=== PATIENT | male | born 1975 | race Asian ===

== ENCOUNTER 2018-05-26 15:59 | Emergency (ER) | payer MEDICARE ==
[~2018-05-26] VITALS: Ht 170.2 cm; Wt 83.9 kg
[2018-05-26 16:02] VITALS: BP_SYST 142
--- NOTE | 2018-05-26 16:07 | NUR ---
Pt states that while walking in [place] he [place] ants on his legs. Later rashes appeared to his chest and buttocks. Generalized rash noted to chest and buttocks, swelling to medical ankle from bites. No visible bite gonzalez noted. Airway patent, no respiratory distress.
--- NOTE | 2018-05-26 16:07 | NUR ---
Patient to ER bed 5 to gown for evaluation. Side rails up. Report given to Masood NESBITT.
--- NOTE | 2018-05-26 16:16 | NUR ---
Cyril Valencia, PAC at bedside to assess pt.
[2018-05-26] MEDS ORDERED: PREDNISONE 20 MG TABLET PO ONE (16:30)
[2018-05-26] MEDS ORDERED: FAMOTIDINE 20 MG TABLET PO ONE (16:30)
[2018-05-26] MEDS ORDERED: DIPHENHYDRAMINE HCL 25 MG CAPSULE PO ONE (16:30)
--- NOTE | 2018-05-26 17:15 | NUR ---
Pt verbalizes improvement to rash.
[2018-05-26 17:32] VITALS: BP_SYST 128
--- NOTE | 2018-05-26 17:32 | NUR ---
Patient given written and verbal discharge instructions and verbalizes understanding. ER MD discussed with patient the results and treatment provided. Patient in stable condition. ID arm band removed. Rx of Benadryl and Prednisone given. Patient educated on pain management and to follow up with PMD. Pain Scale 0/10. Opportunity for questions provided and answered. Medication side effect fact sheet provided.
== END 2018-05-26 17:32 | disposition home or self-care (01) ==
LOC: SED 15:59
DX: T78.49XA Other allergy, initial encounter (principal); R21 Rash and other nonspecific skin eruption; I10 Essential (primary) hypertension; X58.XXXA Exposure to other specified factors, initial encounter
CPT/HCPCS: 99284; J7512; Q0163